=== PATIENT | female | born 1965 | race Caucasian/White ===

== ENCOUNTER 2022-04-01 11:06 | Outpatient (CLI) | payer BC | END 2022-04-01 11:07 | disposition home or self-care (01) | LOC: CSHMAMMO 11:06 | PROVIDERS: ATTEND Family Medicine | DX: Z12.31 Encounter for screening mammogram for malignant neoplasm of breast (principal) | CPT/HCPCS: 77063; 77067 ==

== ENCOUNTER 2022-10-16 07:54 | Outpatient (CLI) | payer BC | END 2022-10-16 07:55 | disposition home or self-care (01) | LOC: CSHMRI 07:54 | PROVIDERS: ATTEND Orthopaedic Surgery | DX: M54.12 Radiculopathy, cervical region (principal); M47.812 Spondylosis without myelopathy or radiculopathy, cervical region | CPT/HCPCS: 72141 ==

== ENCOUNTER 2024-10-10 15:09 | Outpatient (CLI) | payer BC | END 2024-10-10 15:10 | disposition home or self-care (01) | LOC: CSHMAMMO 15:09 | PROVIDERS: ATTEND Family Medicine | DX: Z78.0 Asymptomatic menopausal state (principal) | CPT/HCPCS: 77080 ==

== ENCOUNTER 2025-09-05 11:43 | Outpatient (CLI) | payer BC | END 2025-09-05 11:44 | disposition home or self-care (01) | LOC: CSHRAD 11:43 | PROVIDERS: ATTEND Internal Medicine Rheumatology | DX: M46.1 Sacroiliitis, not elsewhere classified (principal); M25.80 Other specified joint disorders, unspecified joint; Z98.890 Other specified postprocedural states | CPT/HCPCS: 72202 ==